=== PATIENT | female | born 1965 | race Hispanic/Latino ===

== ENCOUNTER 2018-03-22 12:11 | Day surgery (SDC) | payer BC, MEDICARE ==
[2018-03-22] MEDS ORDERED: SUBLIMAZE IV PRN (13:31)
[2018-03-22] MEDS ORDERED: ZOFRAN IV PRN (13:31)
--- NOTE | 2018-03-22 13:33 | Anesthesia Day of Surgery ---
Anesthesia Day of Surgery - Day of Surgery Patient Examined: Yes Patient H&P Reviewed: Yes Patient is NPO: Yes
--- NOTE | 2018-03-22 13:34 | Anesthesia Consultation ---
Anesthesia Consult and Med Hx Date of service: 03/22/18 - Airway Anesthetic Teeth Evaluation: Good, Bridges ROM Head & Neck: Adequate Mental/Hyoid Distance: Adequate Mallampati Class: Class II Intubation Access Assessment: Good - Pre-Operative Health Status ASA Pre-Surgery Classification: ASA3 Proposed Anesthetic Plan: General - Pulmonary Hx Smoking: No Hx Sleep Apnea: No (ISELA PRE SCREEN HIGH RISK) - Cardiovascular System Hx Hypertension: No - Central Nervous System Hx Back Pain: Yes (NECK AND BACK PAIN) - Other Systems Hx Cancer: No
[2018-03-22] MEDS ORDERED: XYLOCAINE 2% INFILTRATI ONE (13:57)
[2018-03-22] MEDS ORDERED: GENTAMICIN/NS 80 MG/100 ML 100 ML IV SCH (14:00)
[2018-03-22] MEDS ORDERED: CLEOCIN 600 MG/50 mL 600 MG/50 ML BAG IV NR (14:00)
[2018-03-22] MEDS ORDERED: LACTATED RINGERS 1,000 ML IV SCH (14:00)
[2018-03-22] MEDS ORDERED: GENTAMICIN/NS 120MG/100ML 120 MG/100 ML BAG IV NR (14:00)
[2018-03-22] MEDS ORDERED: TYLENOL PO NR (14:00)
[2018-03-22] MEDS ORDERED: XYLOCAINE MPF 2% ONE (14:15)
[2018-03-22] MEDS ORDERED: DIPRIVAN 10 MG/ML IV ONE (14:15)
[2018-03-22] MEDS ORDERED: SUBLIMAZE ONE (14:15)
[2018-03-22] MEDS ORDERED: DECADRON ONE (14:19)
[2018-03-22] MEDS ORDERED: ZOFRAN ONE (14:19)
[2018-03-22] MEDS ORDERED: NACL 0.9% IR ONE (15:00)
[2018-03-22] MEDS ORDERED: NEO SYNEPHRINE/NS Syringe(OR USE) IV ONE (15:03)
[2018-03-22] MEDS ORDERED: ROBINUL ONE (15:09)
[2018-03-22] MEDS ORDERED: BLOXIVERZ ONE (15:09)
--- NOTE | 2018-03-22 15:15 | Short Stay Summary ---
Short Stay Documentation Date of service: 03/22/18 - History H&P: obtained from office - Allergies and Medications Current Medications: Allergies amoxicillin Adverse Reaction (Verified 03/15/18 16:06) Diarrhea, VOMITING Home Medications Medication Instructions Recorded Confirmed Last Taken Type Ferrous Sulfate 324 mg PO DAILY 03/15/18 03/15/18 Unknown History Ibuprofen 800 mg PO PRN PRN 03/15/18 03/15/18 Unknown History Multivit-Min/FA/Lycopen/Lutein 1 each PO DAILY 03/15/18 03/15/18 Unknown History [Centrum Silver Tablet] [place]-3 Fatty Acids/Fish Oil [Fish 1 each PO DAILY 03/15/18 03/15/18 Unknown History Oil 1,000 mg Capsule] Active Medications Acetaminophen (Tylenol) 650 mg PO PREOP NR Stop: 03/22/18 23:59 Last Admin: 03/22/18 13:40 Dose: 650 mg Documented by: Celecoxib (Celebrex) 200 mg PO PREOP NR Stop: 03/22/18 23:59 Last Admin: 03/22/18 13:42 Dose: 200 mg Documented by: Fentanyl (Sublimaze) 50 mcg IV Q5MIN PRN PRN Reason: Pain , Severe (7-10) Clindamycin HCl (Cleocin 600 Mg/50 Ml) 600 mg in 50 mls @ 100 mls/hr IV PREOP NR; Protocol Stop: 03/22/18 23:59 Lactated Ringer's (Lactated Ringers) 1,000 mls @ 75 mls/hr IV DIRECT ARMEN Last Admin: 03/22/18 13:43 Dose: 75 mls/hr Documented by: Gentamicin Sulfate/Sodium Chloride (Garamycin/Ns 120mg/100ml) 120 mg in 100 mls @ 200 mls/hr IV PREOP NR Stop: 03/22/18 23:55 Ondansetron HCl (Zofran) 4 mg IV ONCE PRN PRN Reason: Nausea And Vomiting - Brief post op/procedure progress note Date of procedure: 03/22/18 Pre-op diagnosis: neurogenic bladder/ mal function interstim Post-op diagnosis: same Procedure: replace interstim battery (IPG) Anesthesia: GETA Surgeon: MATTEO BAL Estimated blood loss: minimal Pathology: list (battery) Specimen disposition: to lab Condition: stable - Hospital course Hospital course: macrobid & norco on chart - Disposition Condition at discharge: Stable Disposition: DC-01 TO HOME OR SELFCARE Short Stay Discharge Plan Follow up with: EDSON TIPTON [Other] - 7 Days
--- NOTE | 2018-03-22 15:59 | XRay Report ---
AP pelvis in OR: Limited AP views of the pelvis demonstrate the presence of a stimulator wire overlying the bladder entering from the right sided stimulator in the soft tissues adjacent to the iliac crest.
[2018-03-22 17:17] VITALS: BP 106/68
--- NOTE | 2018-03-22 20:03 | Operative Report ---
PREOPERATIVE DIAGNOSES: Neurogenic bladder (urinary retention), malfunctioning InterStim. POSTOPERATIVE DIAGNOSES: Neurogenic bladder (urinary retention), malfunctioning InterStim. PROCEDURE: Replace InterStim battery (implantable pulse generator). SURGEON: Trevor Avalos M.D. ANESTHESIA: General. ESTIMATED BLOOD LOSS: Minimal. FLUIDS: Crystalloid. COMPLICATIONS: None. INDICATIONS: This patient is a 53-year-old female known to my service with neurogenic bladder. She underwent InterStim placement in 2010. She has done well. Recently, she noticed worsening of her voiding function and test in the office was consistent with nonfunctioning battery, presents now for replacement and interrogation. Risks, benefits, and complications were explained. DESCRIPTION OF PROCEDURE: The patient was taken to the operative suite, placed in a supine position. After adequate general anesthesia, she was then placed in a prone position. Lower back was prepped and draped in a sterile fashion. The patient had InterStim battery in the left buttock area. Incision was made over the previous site and the subcutaneous tissue. The battery was identified and removed. No signs of infection. The quadripolar lead was then stimulated on all 4 leads with some stimulation in all 4; however, the second and third lead had the best stimulation in terms of toe reflex and anal wink. New implantable pulse generator was implanted, secured into position without difficulty, placed in the subcutaneous tissue. Interrogation revealed adequate response. Subcutaneous tissue was used to close with 2-0 chromic in a running fashion. Skin was closed with 3-0 Vicryl in an interrupted fashion. Tegaderm and Op-Site was placed. The patient tolerated the procedure well. She was extubated and taken to recovery room in stable condition. She will go home on PASSNFLY and Eyenalyze. JOB# [id number] [facility]
== END 2018-03-22 17:10 | disposition home or self-care (01) ==
LOC: OR 12:11
PROVIDERS: ATTEND Urology
DX: T85.698A Other mechanical complication of other specified internal prosthetic devices, implants and grafts, initial encounter (principal); N31.8 Other neuromuscular dysfunction of bladder; K21.9 Gastro-esophageal reflux disease without esophagitis; Z90.710 Acquired absence of both cervix and uterus; Z90.721 Acquired absence of ovaries, unilateral; Z88.6 Allergy status to analgesic agent; Z79.899 Other long term (current) drug therapy; Z98.890 Other specified postprocedural states; Z90.49 Acquired absence of other specified parts of digestive tract; Y83.8 Other surgical procedures as the cause of abnormal reaction of the patient, or of later complication, without mention of misadventure at the time of the procedure; Y92.89 Other specified places as the place of occurrence of the external cause
CPT/HCPCS: 64590; 72170; 88300; C1767; C1894; J1100; J1580; J2370; J2405; J2704; J2710; J3010; J7120; 88302